=== PATIENT | female | born 1955 | race Two or more races ===

== ENCOUNTER 2019-04-02 12:52 | Day surgery (SDC) | payer OTHER ==
[~2019-04-02] VITALS: Ht 144.8 cm; Wt 65.9 kg
[2019-04-02] MEDS ORDERED: [UNRECOGNIZED DRUG - OTHER] (13:25)
[2019-04-02] MEDS ORDERED: OMEG-80 PO (13:25)
[2019-04-02] MEDS ORDERED: NAPR220C2 PO (13:25)
[2019-04-02] MEDS ORDERED: VITA-112 PO (13:25)
[2019-04-02] MEDS ORDERED: CYAN500T46 PO (13:25)
[2019-04-02] MEDS ORDERED: MONT5TAB16 PO (13:25)
[2019-04-02 13:27] VITALS: Ht 144.8 cm; Wt 65.9 kg
[2019-04-02 13:40] VITALS: BP 125/65; PULSE 78; RESP 18
--- NOTE | 2019-04-02 13:40 | PREAC ---
Date/Time of Note Date/Time of Note DATE: 04/02/19 TIME: 13:39 Anesthesia Eval and Record Evaluation Time Pre-Procedure Interview DATE: 04/02/19 TIME: 13:39 Age 63 Sex female NPO: 8 hrs Preoperative diagnosis abdominal pain Planned procedure colonoscopy Past Medical History Past Medical History: None Surgery & Anesthesia Issues No known issue Meds Anticoagulation: No Beta Pamela within 24 hr: No Reason Beta Pamela not given: Pt. not on B-Pamela Reported Medications [[place] Grapeseed] No Conflict Check 04/02/19 Naproxen* (Aleve*) 220 Mg Capsule, 220 MG PO BID, #60 CAP 04/02/19 Montelukast Sodium* (Montelukast Sodium*) 5 Mg Tab.chew, 5 MG PO DAILY, #30 TAB 04/02/19 Cyanocobalamin* (Vitamin B12*) 500 Mcg Tab, 1000 MCG PO DAILY, TAB 04/02/19 [place]-3S/Dha/Epa/Fish Oil/D3 (FISH OIL + D3 SOFTGEL) 1 Each Capsule, 1 EACH PO, CAP 04/02/19 Vitamin D3/Vitamin K2 (Mk4) (K2 Plus D3 Tablet) 1 Each Tablet, 1 EACH PO, TAB 04/02/19 Meds reviewed: Yes Allergies Coded Allergies: No Known Allergy (Unverified , 04/02/19) Allergies Reviewed: Yes Labs/Studies Labs Reviewed: Reviewed by anesthesiologist test: N/A Studies: ECG (n/a), CXR (n/a) Pre-procedure Exam Airway: Adequate mouth opening Mallampati: Mallampati I Teeth: Normal Lung: Normal Heart: Normal ASA Physical Status ASA physical status: 1 Emergency: None Planned Anesthetic General/MAC: MAC Pre-operative Attestations Prior to commencing anesthesia and surgery, the patient was re-evaluated, there was verification of: *The patient's identity *The results of appropriate recent lab work and preoperative vital signs *The above evaluation not changing prior to induction *Anesthetic plan, risk benefits, alternative and complications discussed with patient/family; questions answered; patient/family understands, accepts and wishes to proceed. ANNIE HURST MD April 02, 2019 13:40
[2019-04-02] MEDS ORDERED: PROPOFOL 20 ML ONE (13:47)
[2019-04-02] MEDS ORDERED: FENTAnyl 50 MCG/ML VIAL ONE (13:47)
[2019-04-02 14:43] VITALS: BP 124/72; PULSE 60; RESP 16
--- NOTE | 2019-04-02 14:47 | HPN ---
Date/Time of Note Date/Time of Note DATE: 04/02/19 TIME: 14:47 Interval H&P Admission Note Pt. seen H&P reviewed: No system changes LU LUNDY April 02, 2019 14:47
[2019-04-02] MEDS ORDERED: hydrALAzine 20 MG INJ IV PRN (15:30)
[2019-04-02] MEDS ORDERED: DIPHENHYDRAMINE 50 MG INJ IV PRN (15:30)
[2019-04-02] MEDS ORDERED: MEPERIDINE 25 MG INJ IV PRN (15:30)
[2019-04-02] MEDS ORDERED: LABETALOL HCL 20MG INJ IV PRN (15:30)
[2019-04-02] MEDS ORDERED: HYDROmorphONE 1 MG/5 ML IV SYRINGE IV PRN ×3 (15:30)
[2019-04-02] MEDS ORDERED: OXYCODONE/ACETAMINOPHEN (5/325) TAB PO PRN ×2 (15:30)
[2019-04-02] MEDS ORDERED: FENTAnyl 50 MCG/ML VIAL IV PRN ×3 (15:30)
[2019-04-02] MEDS ORDERED: ONDANSETRON 4 MG INJ IV PRN (15:30)
--- NOTE | 2019-04-02 16:46 | PAC ---
Date/Time of Note Date/Time of Note DATE: 04/02/19 TIME: 16:46 Post-Anesthesia Notes Post-Anesthesia Note Last documented vital signs Vital Signs Date Temp Pulse Resp B/P (MAP) Pulse Ox O2 O2 Flow FiO2 Time Delivery Rate 04/02/19 98.2 60 16 124/72 98 Room Air 14:43 (89) 04/02/19 98.0 13:40 Activity: WNL Respiratory function: WNL Cardiovascular function: WNL Mental status: Baseline Pain reasonably controlled: Yes Hydration appropriate: Yes Nausea/Vomiting absent: No ANNIE HURST MD April 02, 2019 16:46
== END 2019-04-02 14:47 | disposition home or self-care (01) ==
LOC: GIL 12:52
PROVIDERS: ATTEND Internal Medicine Gastroenterology
DX: D12.6 Benign neoplasm of colon, unspecified (principal); K63.89 Other specified diseases of intestine
CPT/HCPCS: 45385; 88305; J3010; Z7610